=== PATIENT | male | born 1960 | race Caucasian/White ===

== ENCOUNTER 2017-10-23 16:31 | Inpatient (IN) | payer MEDICARE, OTHER ==
[~2017-10-23] VITALS: Ht 182.9 cm; Wt 124.5 kg
[2017-10-23] MEDS ORDERED: cloNIDine HCL 0.1 MG TABLET PO ONE (17:15)
[2017-10-23] MEDS ORDERED: amLODIPine BESYLATE 5 MG TABLET PO ONE (17:15)
[2017-10-23] MEDS ORDERED: IV NORMAL SALINE 1000ML BAG 1,000 ML IV ONE (17:15)
[2017-10-23 17:28] LABS: BASO # 0.1 x10^3/uL (0.0-0.2); BASO % 1 % (0-3); EOS # 0.1 x10^3/uL (0.0-0.7); EOS % 2 % (0-3); HEMATOCRIT 43.8 % (39.0-53.0); HEMOGLOBIN 14.3 g/dL (13.0-17.5); LYMPH # 2.1 x10^3/uL (1.0-4.8); LYMPH % 36 % (24-48); MEAN CORPUSCULAR HEMOGLOBIN 27 pg (25-35); MEAN CORPUSCULAR HGB CONC 33 g/dL (31-37); MEAN CORPUSCULAR VOLUME 81 fL (79-100); MONO # 0.6 x10^3/uL (0.0-1.1); MONO % 11 % (0-9); NEUT # 2.9 x10^3uL (1.8-7.7); NEUT % 50 % (31-73); PLATELET COUNT 215 x10^3/uL (140-400); RED CELL DISTRIBUTION WIDTH 15.3 % (11.5-14.5); WHITE BLOOD COUNT 5.8 x10^3/uL (4.0-11.0)
[2017-10-23 17:35] LABS: BILIRUBIN,URINE NEGATIVE (NEG); CLARITY,URINE CLEAR; COLOR,URINE YELLOW; NITRITE,URINE NEGATIVE (NEG); PH,URINE 5.5; PROTEIN,URINE 30 mg/dL (NEG-TRACE); UROBILINOGEN,URINE 0.2 mg/dL (0.2 mg/dL)
[2017-10-23 17:38] LABS: PROTHROMBIN TIME PATIENT 12.5 SEC (11.7-14.0)
[2017-10-23 17:42] LABS: CALCIUM 8.7 mg/dL (8.5-10.1); CREATININE 0.9 mg/dL (0.7-1.3); GFR 87.6; POTASSIUM 3.4 mmol/L (3.5-5.1)
[2017-10-23 17:46] LABS: ALBUMIN 3.4 g/dL (3.4-5.0); TOTAL BILIRUBIN 0.2 mg/dL (0.2-1.0); TOTAL PROTEIN 6.7 g/dL (6.4-8.2)
--- NOTE | 2017-10-23 17:48 | PHYS DOC ---
Past Medical History Past Medical History: Diabetes-Type II, Hypertension Additional Past Medical Histor: CONCUSSION Additional Past Surgical Histo: BACK SX AND HEAD SX Alcohol Use: Occasionally Drug Use: None Adult General Chief Complaint Chief Complaint: OTHER COMPLAINTS HPI HPI Patient is a 57 year old male presenting with chief complaint of feeling a sensation of heat coming off his neck in the back of his head and radiates down his the back of his body says he's had this for several weeks if not longer. He has no chest pain no shortness of breath. He does take blood pressure medication or he has not been on it. Also is noting some swelling of the right lower extremity says he might have sprained it but he never got it checked out. There has been going on for about a week. He says he's been evaluated for this hot sensation in the past without effect. And apparently his doctor ordered an ultrasound of his right lower extremity but that has not been done yet. He does take blood pressure medication but has not taken it this afternoon. Review of Systems Review of Systems Eyes: Denies change in visual acuity, redness, or eye pain [] HENT: Denies nasal congestion or sore throat [] Respiratory: Denies cough or shortness of breath [] Musculoskeletal: Integument: Denies rash or skin lesions [] Endocrine: Denies polyuria or polydipsia [] All other systems were reviewed and found to be within normal limits, except as documented in this note. Current Medications Current Medications Current Medications Medications (Trade) Dose Ordered Sig/Marcus Start Time Stop Time Status Last Admin Dose Admin Acetaminophen (Tylenol) 650 mg PRN Q4HRS PRN 10/23/17 19:30 10/24/17 19:29 Acetaminophen/ Hydrocodone Bitart (Lortab 5/325) 2 tab 1X ONCE 10/23/17 18:45 10/23/17 18:47 DC 10/23/17 19:08 2 TAB Amlodipine Besylate (Norvasc) 10 mg 1X ONCE 10/23/17 17:15 10/23/17 17:16 DC 10/23/17 17:21 10 MG Clonidine HCl (Catapres) 0.3 mg 1X ONCE 10/23/17 17:15 10/23/17 17:16 DC 10/23/17 17:21 0.3 MG Heparin Sodium (Porcine) (Heparin Sodium) 1,850 unit PRN Q6HRS PRN 10/23/17 19:15 Heparin Sodium/ Dextrose 500 ml @ 0 mls/hr CONT PRN 10/23/17 19:15 Info (CONTRAST GIVEN -- Rx MONITORING) 1 each PRN DAILY PRN 10/23/17 18:15 10/25/17 18:14 Iohexol (Omnipaque 300 Mg/ml) 75 ml 1X ONCE 10/23/17 18:15 10/23/17 18:16 DC Morphine Sulfate (Morphine Sulfate) 4 mg PRN Q2HR PRN 10/23/17 19:30 10/24/17 19:29 Ondansetron HCl (Zofran) 4 mg PRN Q8HRS PRN 10/23/17 19:30 10/24/17 19:29 Sodium Chloride 1,000 ml @ 1,000 mls/hr 1X ONCE 10/23/17 17:15 10/23/17 18:14 DC 10/23/17 17:21 1,000 MLS/HR Warfarin Sodium (Coumadin Per Pharmacy) 1 each PRN DAILY PRN 10/23/17 19:15 UNV Allergies Allergies Allergies Coded Allergies Type Severity Reaction Last Updated Verified No Known Drug Allergies 10/23/17 No Physical Exam Physical Exam Constitutional: Well developed, well nourished, no acute distress, non-toxic appearance. [] HENT: Normocephalic, atraumatic, bilateral external ears normal, oropharynx moist, no oral exudates, nose normal. [] Eyes: PERRLA, EOMI, conjunctiva normal, no discharge. [] Neck: Normal range of motion, no tenderness, supple, no stridor. [] Cardiovascular:Heart rate regular rhythm, no murmur [] Lungs & Thorax: Bilateral breath sounds clear to auscultation [] Abdomen: Bowel sounds normal, soft, no tenderness, no masses, no pulsatile masses. [] Skin: Warm, dry, no erythema, no rash. [] Back: No tenderness, no CVA tenderness. [] Extremities: No tenderness, no cyanosis, no clubbing, ROM intact, no edema. [] Neurologic: Alert and oriented X 3, normal motor function, normal sensory function, no focal deficits noted. [] Psychologic: Affect normal, judgement normal, mood normal. [] Current Patient Data Vital Signs Vital Signs Date Time Temp Pulse Resp B/P (MAP) Pulse Ox O2 Delivery O2 Flow Rate FiO2 10/23/17 17:21 80 221/139 10/23/17 16:41 98.3 26 97 Room Air 98.3 Lab Values Laboratory Tests Test 10/23/17 16:52 10/23/17 17:18 10/23/17 17:29 Glucose (Fingerstick) 354 mg/dL (70-99) H White Blood Count 5.8 x10^3/uL (4.0-11.0) Red Blood Count 5.40 x10^6/uL (4.30-5.70) Hemoglobin 14.3 g/dL (13.0-17.5) Hematocrit 43.8 % (39.0-53.0) Mean Corpuscular Volume 81 fL (79-100) Mean Corpuscular Hemoglobin 27 pg (25-35) Mean Corpuscular Hemoglobin Concent 33 g/dL (31-37) Red Cell Distribution Width 15.3 % (11.5-14.5) H Platelet Count 215 x10^3/uL (140-400) Neutrophils (%) (Auto) 50 % (31-73) Lymphocytes (%) (Auto) 36 % (24-48) Monocytes (%) (Auto) 11 % (0-9) H Eosinophils (%) (Auto) 2 % (0-3) Basophils (%) (Auto) 1 % (0-3) Neutrophils # (Auto) 2.9 x10^3uL (1.8-7.7) Lymphocytes # (Auto) 2.1 x10^3/uL (1.0-4.8) Monocytes # (Auto) 0.6 x10^3/uL (0.0-1.1) Eosinophils # (Auto) 0.1 x10^3/uL (0.0-0.7) Basophils # (Auto) 0.1 x10^3/uL (0.0-0.2) Prothrombin Time 12.5 SEC (11.7-14.0) Prothrombin Time INR 1.0 (0.8-1.1) Sodium Level 133 mmol/L (136-145) L Potassium Level 3.4 mmol/L (3.5-5.1) L Chloride Level 100 mmol/L (98-107) Carbon Dioxide Level 27 mmol/L (21-32) Anion Gap 6 (6-14) Blood Urea Nitrogen 12 mg/dL (8-26) Creatinine 0.9 mg/dL (0.7-1.3) Estimated GFR (Cockcroft-Gault) 87.6 BUN/Creatinine Ratio 13 (6-20) Glucose Level 361 mg/dL (70-99) H Calcium Level 8.7 mg/dL (8.5-10.1) Total Bilirubin 0.2 mg/dL (0.2-1.0) Aspartate Amino Transferase (AST) 18 U/L (15-37) Alanine Aminotransferase (ALT) 44 U/L (16-63) Alkaline Phosphatase 96 U/L (46-116) Troponin I Quantitative 0.024 ng/mL (0.000-0.055) Total Protein 6.7 g/dL (6.4-8.2) Albumin 3.4 g/dL (3.4-5.0) Albumin/Globulin Ratio 1.0 (1.0-1.7) Urine Collection Type Void Urine Color Yellow Urine Clarity Clear Urine pH 5.5 Urine Specific [place] >=1.030 Urine Protein 30 mg/dL (NEG-TRACE) Urine Glucose (UA) >=1000 mg/dL (NEG) Urine Ketones (Stick) Negative mg/dL (NEG) Urine Blood Negative (NEG) Urine Nitrite Negative (NEG) Urine Bilirubin Negative (NEG) Urine Urobilinogen Dipstick 0.2 mg/dL (0.2 mg/dL) Urine Leukocyte Esterase Negative (NEG) Urine RBC Occ /HPF (0-2) Urine WBC Rare /HPF (0-4) Urine Squamous Epithelial Cells Few /LPF Urine Bacteria 0 /HPF (0-FEW) Urine Mucus Slight /LPF Laboratory Tests 10/23/17 17:18 Laboratory Tests 10/23/17 17:18 EKG EKG [] Interpretation Time: EKG shows a normal sinus rhythm with a rate of 84 there is LVH pattern no obvious STEMI was seen interpreted by me at time of encounter. Radiology/Procedures Radiology/Procedures CTA Chest with contrast: Clinical History: + DVT, CP. r/o PE
IV OMNI 300 75 MLS . Axial helical images of the chest were obtained after the administration of 75 cc of IV Omni 300 and timed appropriately for a pulmonary arterial study. Conventional axial reconstruction was performed in addition to coronal, sagittal and bilateral oblique MIP (maximum intensity projection). This study was ordered to detect possible pulmonary embolism. There is clot within the distal right main pulmonary artery is interdigitating into a few segmental and subsegmental pulmonary arteries. There is clot within several segmental and subsegmental branches of the left main pulmonary artery. There is no saddle embolism. The lungs and pleural margins are clear. There is no mediastinal or hilar lymphadenopathy. The thoracic aorta appears normal. The left lobe of the thyroid is enlarged. Impression: 1. Bilateral pulmonary emboli with mild to moderate clot burden. No pulmonary infarct or saddle embolism. 2. Enlargement of the left lobe of the thyroid. Recommend a follow-up ultrasound of the thyroid as an outpatient. CT Head: no acute CXR: cardiomegaly DVT Study Right LE: Findings: There is occlusive DVT throughout the right SFV and popliteal and partial clot within the right PTV. There is soft tissue edema in the right calf. There is normal duplex flow, color flow and compressibility of all remaining visualized vein segments. No evidence of deep venous thrombus is present on the left. The peroneal veins are not seen bilaterally. Impression: Extensive DVT on the right. Course & Med Decision Making Course & Med Decision Making Pertinent Labs and Imaging studies reviewed. 57-year-old male with a chief complaint of a sensation of heat coming off of the back of his neck that is been there for several weeks apparently says when he has the fan on it the air blowing off his neck is very hot and he is quite worried about this. Of note the blood pressure is 219/125 there is no chest pain. Due to the sensation and possible mild headache we have opted for head CT to rule out intercranial hemorrhage. We will give him clonidine and amlodipine and check basic lab work due to the elevated high blood pressure. 18:30: I assumed care of this patient from Dr. Islas at shift turnover. At that time, DVT study was pending. DVT study ultimately returned positive for extensive clot burden in the right lower extremity. Following this, CT angiography of the chest was completed which also revealed multiple bilateral pulmonary emboli. Patient was started on heparin. I spoke to Dr. Lopez who is on -call for Dr. Ward and the patient is being admitted to [facility]. Prior to admission, all results are reviewed and discussed with both the patient and his . All of their questions are answered. DO Charlene Taylor Disclaimer Dragon Disclaimer This electronic medical record was generated, in whole or in part, using a voice recognition dictation system. Departure Departure Referrals: EMILIANO WARD MD (PCP) LACHELLE ISLAS MD Oct 23, 2017 17:48 ANTONIA LOCKWOOD DO Oct 23, 2017 19:07
[2017-10-23 18:02] LABS: BACTERIA,URINE 0 /HPF (0-FEW); RBC,URINE OCC /HPF (0-2); SQUAMOUS EPITHELIAL CELL,UR FEW /LPF; WBC,URINE RARE /HPF (0-4)
[2017-10-23] MEDS ORDERED: CONTRAST GIVEN. MC PRN (18:15)
[2017-10-23] MEDS ORDERED: IOHEXOL 300 MG/ML 100ML VIAL. IV ONE (18:15)
--- NOTE | 2017-10-23 18:20 | RAD ---
PORTABLE CHEST 1V INDICATION: fever COMPARISON: None. FINDINGS: Normal lung volume. No focal consolidations. Normal pulmonary vasculature. No pleural effusion or pneumothorax. Borderline cardiomegaly. The great vessels of the thorax are normal. No acute osseous abnormality. IMPRESSION: 1. No focal consolidations. 2. Borderline cardiomegaly. Electronically signed by: Everett Portillo MD (10/23/2017 6:17 PM) [facility]
--- NOTE | 2017-10-23 18:21 | EKG ---
[facility] [address] [place] [address] Test Date: 2017-10-23 Test Time: 16:59:54 Pat Name: SUGEY HAZEL Department: Room: Gender: M Certified Caregiver: : 1960 Requested By: LACHELLE TOSCANO Order Number: [id number] Reading MD: Juan R Tovar MD Measurements Intervals [place] Rate: 84 P: 28 AK: 150 QRS: 33 QRSD: 92 T: -120 QT: 356 QTc: 423 Interpretive Statements SINUS RHYTHM LEFT ATRIAL ABNORMALITY LVH WITH REPOLARIZATION ABNORMALITY Electronically Signed On 10-24-2017 10:53:18 CDT by Juan R Tovar MD
--- NOTE | 2017-10-23 18:44 | RAD ---
CT Head W/O Contrast: History: HEADACHE AND SBP 220
PREVIOUS Comparison: June 09, 2012 Axial images were obtained without contrast. There has been a prior right frontal sinus surgery which may have been due to trauma and there is right frontal lobe encephalomalacia. This was seen previously. There is mild diffuse atrophy. There is no mass effect, extraaxial fluid collections or hydrocephalus. There is no gross bleed. Mild, patchy periventricular and subcortical white matter hypoattenuation is seen. There is no focal loss of hanley-white matter distinction to suggest acute ischemia, i.e. stroke. Impression: 1. Mild atrophy and chronic white matter changes is advanced for the patient's age. 2. Right frontal encephalomalacia and right frontal sinus surgery. 3. No acute findings. PQRS Compliance Statement: One or more of the following individualized dose reduction techniques were utilized for this examination: 1. Automated exposure control 2. Adjustment of the mA and/or kV according to patient size 3. Use of iterative reconstruction technique Electronically signed by: Josesito Ren III, MD (10/23/2017 6:41 PM) [id number]
[2017-10-23] MEDS ORDERED: HYDROcodone/APAP 5/325MG 1 TAB TABLET PO ONE (18:45)
--- NOTE | 2017-10-23 18:47 | RAD ---
Bilateral Lower Extremity Venous Doppler Ultrasound History: Right lower extremity swelling Comparison: None Procedure: Color flow, duplex, spectral analysis and 2D images are obtained with and without compression in the area of the common femoral vein, superficial femoral vein - femoral vein junction, main femoral vein (superficial femoral vein) and popliteal vein. Veins of the proximal calf are also imaged. Findings: There is occlusive DVT throughout the right SFV and popliteal and partial clot within the right PTV. There is soft tissue edema in the right calf. There is normal duplex flow, color flow and compressibility of all remaining visualized vein segments. No evidence of deep venous thrombus is present on the left. The peroneal veins are not seen bilaterally. Impression: Extensive DVT on the right. Electronically signed by: Josesito Ren III, MD (10/23/2017 6:44 PM) [id number]
--- NOTE | 2017-10-23 18:54 | RAD ---
CTA Chest with contrast: Clinical History: + DVT, CP. r/o PE
IV OMNI 300 75 MLS . Axial helical images of the chest were obtained after the administration of 75 cc of IV Omni 300 and timed appropriately for a pulmonary arterial study. Conventional axial reconstruction was performed in addition to coronal, sagittal and bilateral oblique MIP (maximum intensity projection). This study was ordered to detect possible pulmonary embolism. There is clot within the distal right main pulmonary artery is interdigitating into a few segmental and subsegmental pulmonary arteries. There is clot within several segmental and subsegmental branches of the left main pulmonary artery. There is no saddle embolism. The lungs and pleural margins are clear. There is no mediastinal or hilar lymphadenopathy. The thoracic aorta appears normal. The left lobe of the thyroid is enlarged. Impression: 1. Bilateral pulmonary emboli with mild to moderate clot burden. No pulmonary infarct or saddle embolism. 2. Enlargement of the left lobe of the thyroid. Recommend a follow-up ultrasound of the thyroid as an outpatient. PQRS Compliance Statement: One or more of the following individualized dose reduction techniques were utilized for this examination: 1. Automated exposure control 2. Adjustment of the mA and/or kV according to patient size 3. Use of iterative reconstruction technique Electronically signed by: Josesito Ren III, MD (10/23/2017 6:51 PM) [facility]
[2017-10-23] MEDS ORDERED: HEPARIN for IV BOLUS 10,000 UNIT/10 ML VIAL. IV PRN ×2 (19:15)
[2017-10-23] MEDS ORDERED: ONDANSETRON PF 4 MG/2 ML VIAL. IV PRN (19:30)
[2017-10-23] MEDS ORDERED: ACETAMINOPHEN 325 MG TABLET. PO PRN (19:30)
[2017-10-23] MEDS ORDERED: MORPHINE SULFATE 4 MG/ML VIAL. IV PRN (19:30)
[2017-10-23] MEDS: HEPARIN 25,000UTS/500ML PREMIX 500 ML IV PRN (20:15)
[2017-10-23 20:28] VITALS: BP 183/112
[2017-10-23] MEDS ORDERED: LOSARTAN POTASSIUM 50 MG TABLET. PO ONE (21:15)
[2017-10-23] MEDS ORDERED: cloNIDine HCL 0.2 MG TABLET PO ONE (21:15)
[2017-10-23] MEDS ORDERED: INSU100I13 SQ (21:50)
[2017-10-23] MEDS ORDERED: TAMS0.4C2 PO (21:50)
[2017-10-23] MEDS ORDERED: LOSA25TA4 PO (21:50)
[2017-10-23] MEDS ORDERED: RANI150C PO (21:50)
[2017-10-23] MEDS ORDERED: POTA20TA82 PO (21:50)
[2017-10-23] MEDS ORDERED: OMEP40CA5 PO (21:50)
[2017-10-23] MEDS ORDERED: DULA1.5P SQ (21:50)
[2017-10-23] MEDS ORDERED: CLON0.3T PO (21:50)
[2017-10-23] MEDS ORDERED: DILT180C29 PO (21:50)
[2017-10-23] MEDS ORDERED: CYCL10TA2 PO (21:50)
[2017-10-23 23:48] VITALS: BP 148/96
[2017-10-24 02:12] VITALS: BP 177/109
[2017-10-24] MEDS: ACETAMINOPHEN 325 MG TABLET. PO PRN ×2 (02:20→12:12)
[2017-10-24] MEDS: cloNIDine HCL 0.1 MG TABLET PO PRN ×3 (02:21→12:23)
[2017-10-24 03:59] VITALS: BP 165/101
[2017-10-24 05:04] LABS: BASO % 1 % (0-3); EOS # 0.2 x10^3/uL (0.0-0.7); EOS % 3 % (0-3); HEMATOCRIT 44.1 % (39.0-53.0); HEMOGLOBIN 14.7 g/dL (13.0-17.5); LYMPH # 2.8 x10^3/uL (1.0-4.8); LYMPH % 45 % (24-48); MEAN CORPUSCULAR HEMOGLOBIN 27 pg (25-35); MEAN CORPUSCULAR HGB CONC 33 g/dL (31-37); MEAN CORPUSCULAR VOLUME 82 fL (79-100); MONO # 0.5 x10^3/uL (0.0-1.1); MONO % 9 % (0-9); NEUT # 2.7 x10^3uL (1.8-7.7); NEUT % 43 % (31-73); PLATELET COUNT 218 x10^3/uL (140-400); RED CELL DISTRIBUTION WIDTH 15.5 % (11.5-14.5); WHITE BLOOD COUNT 6.3 x10^3/uL (4.0-11.0)
[2017-10-24 05:50] LABS: ALBUMIN 3.4 g/dL (3.4-5.0); ALBUMIN/GLOBULIN RATIO 0.9 (1.0-1.7); CALCIUM 8.7 mg/dL (8.5-10.1); CREATININE 0.8 mg/dL (0.7-1.3); GFR 100.4; MAGNESIUM 1.8 mg/dL (1.8-2.4); POTASSIUM 3.3 mmol/L (3.5-5.1); TOTAL BILIRUBIN 0.4 mg/dL (0.2-1.0); TOTAL PROTEIN 7.4 g/dL (6.4-8.2)
[2017-10-24 07:12] VITALS: BP 178/110
[2017-10-24] MEDS: HEPARIN 25,000UTS/500ML PREMIX 500 ML IV PRN ×2 (08:44→22:00)
[2017-10-24] MEDS ORDERED: LOSA1TAB25 PO (10:06)
[2017-10-24] MEDS ORDERED: FURO-68 PO (10:06)
[2017-10-24] MEDS ORDERED: IBUP-1007 PO (10:06)
[2017-10-24] MEDS ORDERED: CHOL500016 PO (10:06)
[2017-10-24] MEDS ORDERED: ASPI-630 PO (10:06)
[2017-10-24] MEDS ORDERED: SIMV40TA3 PO (10:06)
[2017-10-24] MEDS ORDERED: ZOLP10TA4 PO (10:06)
[2017-10-24 10:13] VITALS: BP 204/103
[2017-10-24] MEDS ORDERED: DEXTROSE 50% 25 GM / 50ML DISP.SYRIN. IV PRN (10:15)
--- NOTE | 2017-10-24 10:18 | PDOC ---
Provider Note Provider Note Pt seen.H&P dictated. #[id number] EMILIANO WARD MD Oct 24, 2017 10:18
[2017-10-24] MEDS: TAMSULOSIN 0.4 MG CAP.ER.24H. PO SCH (10:21)
[2017-10-24] MEDS: CHOLECALCIFEROL (VITAMIN D3) 5,000 UNIT CAPSULE PO SCH (10:21)
[2017-10-24] MEDS: FUROSEMIDE 40 MG TABLET. PO SCH (10:21)
[2017-10-24] MEDS: PANTOPRAZOLE 40 MG TABLET.DR. PO SCH (10:21)
[2017-10-24] MEDS: hydroCHLOROthiazide 12.5 MG CAPSULE PO SCH (10:22)
[2017-10-24] MEDS: cloNIDine HCL 0.3 MG TABLET PO SCH ×3 (10:22→20:36)
[2017-10-24] MEDS: ASPIRIN CHEWABLE 81 MG TABLET. PO SCH (10:23)
[2017-10-24] MEDS: LOSARTAN POTASSIUM 50 MG TABLET. PO SCH (10:24)
[2017-10-24] MEDS ORDERED: IBUPROFEN 600 MG TABLET. PO SCH (11:00)
[2017-10-24] MEDS ORDERED: CYCLOBENZAPRINE 10 MG TABLET. PO SCH (11:00)
[2017-10-24] MEDS ORDERED: POTASSIUM CHLORIDE 20 MEQ TABLET.ER. PO ONE (11:00)
[2017-10-24] MEDS: ANTI-COAG MONITOR BY PHARMACY. MC PRN (11:02)
--- NOTE | 2017-10-24 11:05 | HP ---
ADMIT DATE: 10/23/2017 PATIENT LOCATION: 262. REASON FOR ADMISSION TO THE HOSPITAL: DVT, right leg and pulmonary embolism. HISTORY OF PRESENT ILLNESS: The patient is a 57-year-old male patient with history of diabetes, hypertension and traumatic brain injury. He was having swelling in the right leg. I had seen in the office a couple of days ago, recommended venous Doppler, but refused and he came to the hospital for pain and swelling in the right leg as well as short of breath. He was found to have a DVT and pulmonary embolism, was admitted to the hospital and started on heparin drip. PAST MEDICAL HISTORY: As mentioned above, history of diabetes, hypertension and traumatic brain injury. PAST SURGICAL HISTORY: Back surgery and surgery on the skull for head concussion when he was 20 years old. ALLERGIES: No known drug allergies. MEDICATIONS: Trulicity inj weekly; aspirin 81 mg daily; vitamin D 5000 daily; clonidine 0.3 three times a day; cyclobenzaprine 10 mg daily; diltiazem 180 mg daily; Lasix 40 mg daily; ibuprofen 600 mg twice a day; insulin 45 units at bedtime, Lantus; losartan with hydrochlorothiazide 100/12.5 daily; omeprazole 40 mg daily; potassium 20 mEq 3 times daily; Zantac 150 mg daily; simvastatin 40 mg daily; Flomax 0.4 daily; Ambien 10 mg daily and sliding scale insulin. PERSONAL HISTORY: Smokes 1 pack, cut down to half a pack. Denies alcohol. Denies any street drugs. FAMILY HISTORY: Positive for diabetes and hypertension. REVIEW OF SYMPTOMS: Cardiac [place], has some pain going to the back, short of breath. Gastrointestinal, no nausea or vomiting. Some swelling in the right leg. Rest of the 14 systems was reviewed and negative. PHYSICAL EXAMINATION: VITAL SIGNS: At the time of admission shows a temperature 98, pulse 89, respirations 20, blood pressure 219/125 and 97 on room air. HEENT: Head has an old scar from head surgery. Pupils equal. Oral cavity, no congestion. NECK: Supple. Thyroid not enlarged. JVD not elevated. CHEST: Symmetrical. CARDIOVASCULAR: S1, S2. LUNGS: Clear. ABDOMEN: Soft, obese. No mass palpable. EXTERNAL GENITALIA: Deferred. EXTREMITIES: Has swelling in the right leg when compared to the left leg. BACK: The patient has scar of back surgery when he was 20 years old and had injury, healing good. LABORATORY DATA: Shows a white count of 6, hemoglobin 14 and platelets 215,000. INR 1.0. Electrolytes show sodium 133, potassium 3.4, chloride 100, bicarbonate 26, BUN 12, creatinine 0.9 and glucose 361. LFTs were normal. Troponin was negative. Urine is 1000, otherwise negative. Ultrasound shows a DVT on the right. CT angiogram shows pulmonary embolism. Chest x-ray negative. CT head shows encephalomalacia. FINAL IMPRESSION: 1. Deep vein thrombosis, right leg. 2. Pulmonary embolism wood lungs. 3. Accelerated hypertension. 4. Diabetes, insulin dependent. 5. Hypertension. 6. Traumatic brain injury when he was 20. 7. Hyperlipidemia. 8. Uncontrolled rosalino nora. 9. H/o back surgery and head surgery. 10. Morbid obesity PLAN: Plan at this time, admit to hospital. Start on heparin drip. Pulmonary is consulted .Control his blood pressure and see how he improves in the next couple of days. Smoking counseling was done.Control his sugars with insulin. EMILIANO WARD MD DR: ELISSA/familia JOB#: [id number] / [id number] LEVAR
--- NOTE | 2017-10-24 11:31 | PDOC2 ---
CARDIAC CONSULT DATE OF CONSULT Date of Consult DATE: 10/24/17 TIME: 11:30 REASON FOR CONSULT Reason for Consult: uncontrolled hypertension REFERRING PHYSICIAN Referring Physician: John SOURCE Source: Chart review, Patient HISTORY OF PRESENT ILLNESS HISTORY OF PRESENT ILLNESS 57 year old male admitted through the ER with dyspnea and RLE edema. Studies demonstrated a DVT in the RLE with bilateral pulmonary emboli on CTA and started on heparin gtt. BP with systolic > 200; unclear if he takes his meds on a regular basis. Oral meds resumed earlier today. K 3.3 POA. C/O DIAZ line stabbing chest pain without associated symptoms. Reason for Visit: hypertension PAST MEDICAL HISTORY Cardiovascular: HTN Pulmonary: Other (BEBE - untreated ) CENTRAL NERVOUS SYSTEM: Other (TBI) Endocrine: Diabetes PAST SURGICAL HISTORY Past Surgical History: Other (brain and back surgery) FAMILY HISTORY Family History: Diabetes, Hypertension SOCIAL HISTORY Smoke: <1 pack per day CURRENT MEDICATIONS CURRENT MEDICATIONS Current Medications Medications (Trade) Dose Ordered Sig/Marcus Route PRN Reason Start Time Stop Time Status Last Admin Dose Admin Sodium Chloride 1,000 ml @ 1,000 mls/hr 1X ONCE IV 10/23/17 17:15 10/23/17 18:14 DC 10/23/17 17:21 Clonidine HCl (Catapres) 0.3 mg 1X ONCE PO 10/23/17 17:15 10/23/17 17:16 DC 10/23/17 17:21 Amlodipine Besylate (Norvasc) 10 mg 1X ONCE PO 10/23/17 17:15 10/23/17 17:16 DC 10/23/17 17:21 Acetaminophen/ Hydrocodone Bitart (Lortab 5/325) 2 tab 1X ONCE PO 10/23/17 18:45 10/23/17 18:47 DC 10/23/17 19:08 Heparin Sodium/ Dextrose 500 ml @ 0 mls/hr CONT PRN IV SEE I/O RECORD 10/23/17 19:15 10/24/17 08:44 Morphine Sulfate (Morphine Sulfate) 4 mg PRN Q2HR PRN IV PAIN 10/23/17 19:30 10/24/17 19:29 10/24/17 02:21 Acetaminophen (Tylenol) 650 mg PRN Q4HRS PRN PO MILD PAIN 10/23/17 21:15 10/24/17 02:20 Clonidine HCl (Catapres) 0.2 mg 1X ONCE PO 10/23/17 21:15 10/23/17 21:16 DC 10/23/17 21:28 Clonidine HCl (Catapres) 0.1 mg PRN Q4HRS PRN PO HYPERTENSION, SEE COMMENTS 10/23/17 21:15 10/24/17 08:23 Losartan Potassium (Cozaar) 50 mg 1X ONCE PO 10/23/17 21:15 10/23/17 21:16 DC 10/23/17 21:28 Info (Anti-Coagulation Monitoring By Pharmacy) 1 each PRN DAILY PRN MC SEE COMMENTS 10/24/17 07:30 10/24/17 11:02 Aspirin (Children'S Aspirin) 81 mg DAILY PO 10/24/17 11:00 10/24/17 10:23 Clonidine HCl (Catapres) 0.3 mg TID PO 10/24/17 11:00 10/24/17 10:22 Cyclobenzaprine HCl (Flexeril) 10 mg DAILY PO 10/24/17 11:00 10/24/17 10:22 Furosemide (Lasix) 40 mg DAILY PO 10/24/17 11:00 10/24/17 10:21 Tamsulosin HCl (Flomax) 0.4 mg DAILY PO 10/24/17 11:00 10/24/17 10:21 Vitamin D (Vitamin D3) 5,000 unit DAILY PO 10/24/17 11:00 10/24/17 10:21 Diltiazem HCl (Cardizem 24hr Cd) 180 mg DAILY PO 10/24/17 11:00 10/24/17 10:21 Ibuprofen (Motrin) 600 mg BIDWMEALS PO 10/24/17 11:00 10/24/17 10:23 Pantoprazole Sodium (Protonix) 40 mg DAILYAC PO 10/24/17 11:00 10/24/17 10:21 Losartan Potassium (Cozaar) 100 mg DAILY PO 10/24/17 11:00 10/24/17 10:24 Hydrochlorothiazide (Microzide) 12.5 mg DAILY PO 10/24/17 11:00 10/24/17 10:22 ALLERGIES ALLERGIES: Coded Allergies: No Known Drug Allergies (Unverified , 10/23/17) ROS General: No: Chills, Night Sweats, Fatigue, Malaise, Appetite, Other PSYCHOLOGICAL ROS: No: Anxiety, Behavioral Disorder, Concentration difficultie , Decreased libido, Depression, Disorientation, Hallucinations, Hostility, Irritablity, Memory difficulties, Mood Swings, Obsessive thoughts, Physical abuse, Sexual abuse, Sleep disturbances, Suicidal ideation, Other Eyes: No Blurry vision, No Decreased vision, No Double vision, No Dry eyes, No Excessive tearing, No Eye Pain, No Itchy Eyes, No Loss of vision, No Photophobia , No Scotomata, No Uses contacts, No Uses glasses, No Other HEENT: No: Heacaches, Visual Changes, Hearing change, Nasal congestion, Nasal discharge, Oral lesions, Sinus pain, Sore Throat, Epistaxis, Sneezing, Snoring, Tinnitus, Vertigo, Vocal changes, Other ALLERGY AND IMMUNOLOGY: No: Hives, Insect Bite Sensitivity, Itchy/Watery Eyes, Nasal Congestion, Post Nasal Drip, Seasonal Allergies, Other Hematological and Lymphatic: YES: Blood Clots; No: Bleeding Problems, Blood Transfusions, Brusing, Night Sweats, Pallor, Swollen Lymph Nodes, Other ENDOCRINE: No: Breast Changes, Galactorrhea, Hair Pattern Changes, Hot Flashes , Malaise/lethargy, Mood Swings, Palpitations, Polydipsia/polyuria, Skin Changes , Temperature Intolerance, Unexpected Weight Changes, Other Breast: No New/Changing Breast Lumps, No Nipple changes, No Nipple discharge, No Other Respiratory: No: Cough, Hemoptysis, Orthopnea, Pleuritic Pain, Shortness of breath, SOB with excertion, Sputum Changes, Stridor, Tachypnea, Wheezing, Other Cardiovascular: No Chest Pain, No Palpitations, No Orthopnea, No Paroxysmal Noc. Dyspnea, No Edema, No Lt Headedness, No Other Gastrointestinal: No Nausea, No Vomiting, No Abdominal Pain, No Diarrhea, No Constipation, No Melena, No Hematochezia, No Other Genitourinary: No Dysuria, No Frequency, No Incontinence, No Hematuria, No Retention, No Discharge, No Urgency, No Pain, No Flank Pain, No Other Musculoskeletal: No Gait Disturbance, No Joint Pain, No Joint Stiffness, No Joint Swelling, No Muscle Pain, No Muscular Weakness, No Pain In:, No Swelling In:, No Other Neurological: No Behavorial Changes, No Bowel/Bladder ControlChng, No Confusion , No Dizziness, No Gait Disturbance, No Headaches, No Impaired Coord/balance, No Memory Loss, No Numbness/Tingling, No Seizures, No Speech Problems, No Tremors, No Visual Changes, No Weakness, No Other Skin: No Dry Skin, No Eczema, No Hair Changes, No Lumps, No Mole Changes, No Mottling, No Nail Changes, No Pruritus, No Rash, No Skin Lesion Changes, No Other, No Acne PHYSICAL EXAM General: Alert, Cooperative, No acute distress HEENT: Atraumatic, Mucous membr. moist/pink Lungs: Clear to auscultation Heart: Normal S1, Normal S2, Other (R>L ankle and lower extremity edema) Abdomen: Soft Skin: No rashes Neuro: Normal speech Psych/Mental Status: Mood NL MUSCULOSKELETAL: No deformity VITALS VITALS Vital Signs Date Time Temp Pulse Resp B/P (MAP) Pulse Ox O2 Delivery O2 Flow Rate FiO2 10/24/17 10:24 73 204/103 10/24/17 10:13 98.4 20 95 Room Air 98.4 LABS Lab: Laboratory Tests Test 10/23/17 16:52 10/23/17 17:18 10/23/17 17:29 10/23/17 20:42 Glucose (Fingerstick) 354 mg/dL (70-99) 277 mg/dL (70-99) White Blood Count 5.8 x10^3/uL (4.0-11.0) Red Blood Count 5.40 x10^6/uL (4.30-5.70) Hemoglobin 14.3 g/dL (13.0-17.5) Hematocrit 43.8 % (39.0-53.0) Mean Corpuscular Volume 81 fL (79-100) Mean Corpuscular Hemoglobin 27 pg (25-35) Mean Corpuscular Hemoglobin Concent 33 g/dL (31-37) Red Cell Distribution Width 15.3 % (11.5-14.5) Platelet Count 215 x10^3/uL (140-400) Neutrophils (%) (Auto) 50 % (31-73) Lymphocytes (%) (Auto) 36 % (24-48) Monocytes (%) (Auto) 11 % (0-9) Eosinophils (%) (Auto) 2 % (0-3) Basophils (%) (Auto) 1 % (0-3) Neutrophils # (Auto) 2.9 x10^3uL (1.8-7.7) Lymphocytes # (Auto) 2.1 x10^3/uL (1.0-4.8) Monocytes # (Auto) 0.6 x10^3/uL (0.0-1.1) Eosinophils # (Auto) 0.1 x10^3/uL (0.0-0.7) Basophils # (Auto) 0.1 x10^3/uL (0.0-0.2) Prothrombin Time 12.5 SEC (11.7-14.0) Prothromb Time International Ratio 1.0 (0.8-1.1) Sodium Level 133 mmol/L (136-145) Potassium Level 3.4 mmol/L (3.5-5.1) Chloride Level 100 mmol/L (98-107) Carbon Dioxide Level 27 mmol/L (21-32) Anion Gap 6 (6-14) Blood Urea Nitrogen 12 mg/dL (8-26) Creatinine 0.9 mg/dL (0.7-1.3) Estimated GFR (Cockcroft-Gault) 87.6 BUN/Creatinine Ratio 13 (6-20) Glucose Level 361 mg/dL (70-99) Calcium Level 8.7 mg/dL (8.5-10.1) Total Bilirubin 0.2 mg/dL (0.2-1.0) Aspartate Amino Transf (AST/SGOT) 18 U/L (15-37) Alanine Aminotransferase (ALT/SGPT) 44 U/L (16-63) Alkaline Phosphatase 96 U/L (46-116) Troponin I Quantitative 0.024 ng/mL (0.000-0.055) Total Protein 6.7 g/dL (6.4-8.2) Albumin 3.4 g/dL (3.4-5.0) Albumin/Globulin Ratio 1.0 (1.0-1.7) Urine Collection Type Void Urine Color Yellow Urine Clarity Clear Urine pH 5.5 Urine Specific [place] >=1.030 Urine Protein 30 mg/dL (NEG-TRACE) Urine Glucose (UA) >=1000 mg/dL (NEG) Urine Ketones (Stick) Negative mg/dL (NEG) Urine Blood Negative (NEG) Urine Nitrite Negative (NEG) Urine Bilirubin Negative (NEG) Urine Urobilinogen Dipstick 0.2 mg/dL (0.2 mg/dL) Urine Leukocyte Esterase Negative (NEG) Urine RBC Occ /HPF (0-2) Urine WBC Rare /HPF (0-4) Urine Squamous Epithelial Cells Few /LPF Urine Bacteria 0 /HPF (0-FEW) Urine Mucus Slight /LPF Test 10/24/17 04:15 10/24/17 07:41 10/24/17 10:36 White Blood Count 6.3 x10^3/uL (4.0-11.0) Red Blood Count 5.40 x10^6/uL (4.30-5.70) Hemoglobin 14.7 g/dL (13.0-17.5) Hematocrit 44.1 % (39.0-53.0) Mean Corpuscular Volume 82 fL (79-100) Mean Corpuscular Hemoglobin 27 pg (25-35) Mean Corpuscular Hemoglobin Concent 33 g/dL (31-37) Red Cell Distribution Width 15.5 % (11.5-14.5) Platelet Count 218 x10^3/uL (140-400) Neutrophils (%) (Auto) 43 % (31-73) Lymphocytes (%) (Auto) 45 % (24-48) Monocytes (%) (Auto) 9 % (0-9) Eosinophils (%) (Auto) 3 % (0-3) Basophils (%) (Auto) 1 % (0-3) Neutrophils # (Auto) 2.7 x10^3uL (1.8-7.7) Lymphocytes # (Auto) 2.8 x10^3/uL (1.0-4.8) Monocytes # (Auto) 0.5 x10^3/uL (0.0-1.1) Eosinophils # (Auto) 0.2 x10^3/uL (0.0-0.7) Basophils # (Auto) 0.0 x10^3/uL (0.0-0.2) Heparin Anti-Xa Act, Unfractionated 0.36 IU/mL (0.30-0.70) 0.36 IU/mL (0.30-0.70) Sodium Level 134 mmol/L (136-145) Potassium Level 3.3 mmol/L (3.5-5.1) Chloride Level 98 mmol/L (98-107) Carbon Dioxide Level 26 mmol/L (21-32) Anion Gap 10 (6-14) Blood Urea Nitrogen 10 mg/dL (8-26) Creatinine 0.8 mg/dL (0.7-1.3) Estimated GFR (Cockcroft-Gault) 100.4 BUN/Creatinine Ratio 13 (6-20) Glucose Level 335 mg/dL (70-99) Calcium Level 8.7 mg/dL (8.5-10.1) Magnesium Level 1.8 mg/dL (1.8-2.4) Total Bilirubin 0.4 mg/dL (0.2-1.0) Aspartate Amino Transf (AST/SGOT) 20 U/L (15-37) Alanine Aminotransferase (ALT/SGPT) 46 U/L (16-63) Alkaline Phosphatase 97 U/L (46-116) Total Protein 7.4 g/dL (6.4-8.2) Albumin 3.4 g/dL (3.4-5.0) Albumin/Globulin Ratio 0.9 (1.0-1.7) Glucose (Fingerstick) 328 mg/dL (70-99) IMAGES IMAGES CXR without acute process EKG EKG SINUS RHYTHM LEFT ATRIAL ABNORMALITY LVH WITH REPOLARIZATION ABNORMALITY ECHOCARDIOGRAM ECHOCARDIOGRAM pending ASSESSMENT/PLAN ASSESSMENT/PLAN 1. bilateral pulmonary embolus with RLE DVT --continue heparin gtt 2. chest pain --atypical and likely related to PE --EKG without acute changes --consider outpatient MPI given risk factors of DM, II and HTN 3. DM, II --per primary service 4. HTN urgency --oral meds resumed --add prn labetolol --consider stopping diltiazem and using amlodipine or felodipine as patient does not provide a history of dysrhythmias --may also benefit from use of BiDil rather than clonidine 5. BEBE, untreated CHARLIE MEJIA ALMOND BLANCHER HAND Oct 24, 2017 11:31
[2017-10-24] MEDS: POTASSIUM CHLORIDE 20 MEQ TABLET.ER. PO SCH ×2 (12:10→17:32)
[2017-10-24] MEDS: INSULIN LISPRO 300 UNITS/3 ML INSULN.PEN. SQ SCH ×2 (12:25→17:38)
--- NOTE | 2017-10-24 13:32 | PDOC ---
PULMONARY PROGRESS NOTES Vitals Vital Signs Date Time Temp Pulse Resp B/P (MAP) Pulse Ox O2 Delivery O2 Flow Rate FiO2 10/24/17 12:23 71 178/99 10/24/17 10:13 98.4 20 95 Room Air 98.4 Labs Laboratory Tests Test 10/23/17 16:52 10/23/17 17:18 10/23/17 17:29 10/23/17 20:42 Glucose (Fingerstick) 354 mg/dL (70-99) 277 mg/dL (70-99) White Blood Count 5.8 x10^3/uL (4.0-11.0) Red Blood Count 5.40 x10^6/uL (4.30-5.70) Hemoglobin 14.3 g/dL (13.0-17.5) Hematocrit 43.8 % (39.0-53.0) Mean Corpuscular Volume 81 fL (79-100) Mean Corpuscular Hemoglobin 27 pg (25-35) Mean Corpuscular Hemoglobin Concent 33 g/dL (31-37) Red Cell Distribution Width 15.3 % (11.5-14.5) Platelet Count 215 x10^3/uL (140-400) Neutrophils (%) (Auto) 50 % (31-73) Lymphocytes (%) (Auto) 36 % (24-48) Monocytes (%) (Auto) 11 % (0-9) Eosinophils (%) (Auto) 2 % (0-3) Basophils (%) (Auto) 1 % (0-3) Neutrophils # (Auto) 2.9 x10^3uL (1.8-7.7) Lymphocytes # (Auto) 2.1 x10^3/uL (1.0-4.8) Monocytes # (Auto) 0.6 x10^3/uL (0.0-1.1) Eosinophils # (Auto) 0.1 x10^3/uL (0.0-0.7) Basophils # (Auto) 0.1 x10^3/uL (0.0-0.2) Prothrombin Time 12.5 SEC (11.7-14.0) Prothromb Time International Ratio 1.0 (0.8-1.1) Sodium Level 133 mmol/L (136-145) Potassium Level 3.4 mmol/L (3.5-5.1) Chloride Level 100 mmol/L (98-107) Carbon Dioxide Level 27 mmol/L (21-32) Anion Gap 6 (6-14) Blood Urea Nitrogen 12 mg/dL (8-26) Creatinine 0.9 mg/dL (0.7-1.3) Estimated GFR (Cockcroft-Gault) 87.6 BUN/Creatinine Ratio 13 (6-20) Glucose Level 361 mg/dL (70-99) Calcium Level 8.7 mg/dL (8.5-10.1) Total Bilirubin 0.2 mg/dL (0.2-1.0) Aspartate Amino Transf (AST/SGOT) 18 U/L (15-37) Alanine Aminotransferase (ALT/SGPT) 44 U/L (16-63) Alkaline Phosphatase 96 U/L (46-116) Troponin I Quantitative 0.024 ng/mL (0.000-0.055) Total Protein 6.7 g/dL (6.4-8.2) Albumin 3.4 g/dL (3.4-5.0) Albumin/Globulin Ratio 1.0 (1.0-1.7) Urine Collection Type Void Urine Color Yellow Urine Clarity Clear Urine pH 5.[address] [place] [address] >=1.030 Urine Protein 30 mg/dL (NEG-TRACE) Urine Glucose (UA) >=1000 mg/dL (NEG) Urine Ketones (Stick) Negative mg/dL (NEG) Urine Blood Negative (NEG) Urine Nitrite Negative (NEG) Urine Bilirubin Negative (NEG) Urine Urobilinogen Dipstick 0.2 mg/dL (0.2 mg/dL) Urine Leukocyte Esterase Negative (NEG) Urine RBC Occ /HPF (0-2) Urine WBC Rare /HPF (0-4) Urine Squamous Epithelial Cells Few /LPF Urine Bacteria 0 /HPF (0-FEW) Urine Mucus Slight /LPF Test 10/24/17 04:15 10/24/17 07:41 10/24/17 10:36 10/24/17 11:35 White Blood Count 6.3 x10^3/uL (4.0-11.0) Red Blood Count 5.40 x10^6/uL (4.30-5.70) Hemoglobin 14.7 g/dL (13.0-17.5) Hematocrit 44.1 % (39.0-53.0) Mean Corpuscular Volume 82 fL (79-100) Mean Corpuscular Hemoglobin 27 pg (25-35) Mean Corpuscular Hemoglobin Concent 33 g/dL (31-37) Red Cell Distribution Width 15.5 % (11.5-14.5) Platelet Count 218 x10^3/uL (140-400) Neutrophils (%) (Auto) 43 % (31-73) Lymphocytes (%) (Auto) 45 % (24-48) Monocytes (%) (Auto) 9 % (0-9) Eosinophils (%) (Auto) 3 % (0-3) Basophils (%) (Auto) 1 % (0-3) Neutrophils # (Auto) 2.7 x10^3uL (1.8-7.7) Lymphocytes # (Auto) 2.8 x10^3/uL (1.0-4.8) Monocytes # (Auto) 0.5 x10^3/uL (0.0-1.1) Eosinophils # (Auto) 0.2 x10^3/uL (0.0-0.7) Basophils # (Auto) 0.0 x10^3/uL (0.0-0.2) Heparin Anti-Xa Act, Unfractionated 0.36 IU/mL (0.30-0.70) 0.36 IU/mL (0.30-0.70) Sodium Level 134 mmol/L (136-145) Potassium Level 3.3 mmol/L (3.5-5.1) Chloride Level 98 mmol/L (98-107) Carbon Dioxide Level 26 mmol/L (21-32) Anion Gap 10 (6-14) Blood Urea Nitrogen 10 mg/dL (8-26) Creatinine 0.8 mg/dL (0.7-1.3) Estimated GFR (Cockcroft-Gault) 100.4 BUN/Creatinine Ratio 13 (6-20) Glucose Level 335 mg/dL (70-99) Calcium Level 8.7 mg/dL (8.5-10.1) Magnesium Level 1.8 mg/dL (1.8-2.4) Total Bilirubin 0.4 mg/dL (0.2-1.0) Aspartate Amino Transf (AST/SGOT) 20 U/L (15-37) Alanine Aminotransferase (ALT/SGPT) 46 U/L (16-63) Alkaline Phosphatase 97 U/L (46-116) Total Protein 7.4 g/dL (6.4-8.2) Albumin 3.4 g/dL (3.4-5.0) Albumin/Globulin Ratio 0.9 (1.0-1.7) Glucose (Fingerstick) 328 mg/dL (70-99) 304 mg/dL (70-99) Laboratory Tests Test 10/23/17 16:52 10/23/17 17:18 10/23/17 17:29 10/23/17 20:42 Glucose (Fingerstick) 354 mg/dL (70-99) 277 mg/dL (70-99) White Blood Count 5.8 x10^3/uL (4.0-11.0) Red Blood Count 5.40 x10^6/uL (4.30-5.70) Hemoglobin 14.3 g/dL (13.0-17.5) Hematocrit 43.8 % (39.0-53.0) Mean Corpuscular Volume 81 fL (79-100) Mean Corpuscular Hemoglobin 27 pg (25-35) Mean Corpuscular Hemoglobin Concent 33 g/dL (31-37) Red Cell Distribution Width 15.3 % (11.5-14.5) Platelet Count 215 x10^3/uL (140-400) Neutrophils (%) (Auto) 50 % (31-73) Lymphocytes (%) (Auto) 36 % (24-48) Monocytes (%) (Auto) 11 % (0-9) Eosinophils (%) (Auto) 2 % (0-3) Basophils (%) (Auto) 1 % (0-3) Neutrophils # (Auto) 2.9 x10^3uL (1.8-7.7) Lymphocytes # (Auto) 2.1 x10^3/uL (1.0-4.8) Monocytes # (Auto) 0.6 x10^3/uL (0.0-1.1) Eosinophils # (Auto) 0.1 x10^3/uL (0.0-0.7) Basophils # (Auto) 0.1 x10^3/uL (0.0-0.2) Prothrombin Time 12.5 SEC (11.7-14.0) Prothromb Time International Ratio 1.0 (0.8-1.1) Sodium Level 133 mmol/L (136-145) Potassium Level 3.4 mmol/L (3.5-5.1) Chloride Level 100 mmol/L (98-107) Carbon Dioxide Level 27 mmol/L (21-32) Anion Gap 6 (6-14) Blood Urea Nitrogen 12 mg/dL (8-26) Creatinine 0.9 mg/dL (0.7-1.3) Estimated GFR (Cockcroft-Gault) 87.6 BUN/Creatinine Ratio 13 (6-20) Glucose Level 361 mg/dL (70-99) Calcium Level 8.7 mg/dL (8.5-10.1) Total Bilirubin 0.2 mg/dL (0.2-1.0) Aspartate Amino Transf (AST/SGOT) 18 U/L (15-37) Alanine Aminotransferase (ALT/SGPT) 44 U/L (16-63) Alkaline Phosphatase 96 U/L (46-116) Troponin I Quantitative 0.024 ng/mL (0.000-0.055) Total Protein 6.7 g/dL (6.4-8.2) Albumin 3.4 g/dL (3.4-5.0) Albumin/Globulin Ratio 1.0 (1.0-1.7) Urine Collection Type Void Urine Color Yellow Urine Clarity Clear Urine pH 5.[address] >=1.030 Urine Protein 30 mg/dL (NEG-TRACE) Urine Glucose (UA) >=1000 mg/dL (NEG) Urine Ketones (Stick) Negative mg/dL (NEG) Urine Blood Negative (NEG) Urine Nitrite Negative (NEG) Urine Bilirubin Negative (NEG) Urine Urobilinogen Dipstick 0.2 mg/dL (0.2 mg/dL) Urine Leukocyte Esterase Negative (NEG) Urine RBC Occ /HPF (0-2) Urine WBC Rare /HPF (0-4) Urine Squamous Epithelial Cells Few /LPF Urine Bacteria 0 /HPF (0-FEW) Urine Mucus Slight /LPF Test 10/24/17 04:15 10/24/17 07:41 10/24/17 10:36 10/24/17 11:35 White Blood Count 6.3 x10^3/uL (4.0-11.0) Red Blood Count 5.40 x10^6/uL (4.30-5.70) Hemoglobin 14.7 g/dL (13.0-17.5) Hematocrit 44.1 % (39.0-53.0) Mean Corpuscular Volume 82 fL (79-100) Mean Corpuscular Hemoglobin 27 pg (25-35) Mean Corpuscular Hemoglobin Concent 33 g/dL (31-37) Red Cell Distribution Width 15.5 % (11.5-14.5) Platelet Count 218 x10^3/uL (140-400) Neutrophils (%) (Auto) 43 % (31-73) Lymphocytes (%) (Auto) 45 % (24-48) Monocytes (%) (Auto) 9 % (0-9) Eosinophils (%) (Auto) 3 % (0-3) Basophils (%) (Auto) 1 % (0-3) Neutrophils # (Auto) 2.7 x10^3uL (1.8-7.7) Lymphocytes # (Auto) 2.8 x10^3/uL (1.0-4.8) Monocytes # (Auto) 0.5 x10^3/uL (0.0-1.1) Eosinophils # (Auto) 0.2 x10^3/uL (0.0-0.7) Basophils # (Auto) 0.0 x10^3/uL (0.0-0.2) Heparin Anti-Xa Act, Unfractionated 0.36 IU/mL (0.30-0.70) 0.36 IU/mL (0.30-0.70) Sodium Level 134 mmol/L (136-145) Potassium Level 3.3 mmol/L (3.5-5.1) Chloride Level 98 mmol/L (98-107) Carbon Dioxide Level 26 mmol/L (21-32) Anion Gap 10 (6-14) Blood Urea Nitrogen 10 mg/dL (8-26) Creatinine 0.8 mg/dL (0.7-1.3) Estimated GFR (Cockcroft-Gault) 100.4 BUN/Creatinine Ratio 13 (6-20) Glucose Level 335 mg/dL (70-99) Calcium Level 8.7 mg/dL (8.5-10.1) Magnesium Level 1.8 mg/dL (1.8-2.4) Total Bilirubin 0.4 mg/dL (0.2-1.0) Aspartate Amino Transf (AST/SGOT) 20 U/L (15-37) Alanine Aminotransferase (ALT/SGPT) 46 U/L (16-63) Alkaline Phosphatase 97 U/L (46-116) Total Protein 7.4 g/dL (6.4-8.2) Albumin 3.4 g/dL (3.4-5.0) Albumin/Globulin Ratio 0.9 (1.0-1.7) Glucose (Fingerstick) 328 mg/dL (70-99) 304 mg/dL (70-99) Medications Active Scripts Medications Dose Route/Sig Max Daily Dose Days Date Category Aspirin 81 Mg Tab.chew 1 Tab PO DAILY 10/24/17 Reported Vitamin D3 (Cholecalciferol (Vitamin D3)) 5,000 Unit Tablet 1 Tab PO DAILY 10/24/17 Reported Losartan-Hctz 100-12.5 Mg Tab (Losartan/Hydrochlorothiazide) 1 Each Tablet 1 Tab PO DAILY 10/24/17 Reported Ibuprofen 600 Mg Tablet 600 Mg PO BID 10/24/17 Reported Lasix (Furosemide) 40 Mg Tablet 1 Tab PO DAILY 10/24/17 Reported Simvastatin 40 Mg Tablet 1 Tab PO QHS 10/24/17 Reported Zolpidem Tartrate 10 Mg Tablet 1 Tab PO QHS 10/24/17 Reported Diltiazem 24HR Cd (Diltiazem Hcl) 180 Mg Cap.er.24h 180 Mg PO DAILY 10/23/17 Reported Lantus Solostar (Insulin Glargine,Hum.rec.anlog) 100 Unit/1 Ml Insuln.pen 45 Unit SQ QHS 10/23/17 Reported Trulicity (Dulaglutide) 1.5 Mg/0.5 Ml Pen.injctr 1.5 Mg SQ 10/23/17 Reported Ranitidine Hcl 150 Mg Capsule 150 Mg PO BID 10/23/17 Reported Cyclobenzaprine Hcl 10 Mg Tablet 1 Tab PO DAILY 10/23/17 Reported Tamsulosin Hcl 0.4 Mg Cap.er.24h 0.4 Mg PO DAILY 10/23/17 Reported Potassium Chloride 20 Meq Tablet.er 20 Meq PO TIDAC 10/23/17 Reported Clonidine Hcl 0.3 Mg Tablet 0.3 Mg PO TID 10/23/17 Reported Omeprazole 40 Mg Capsule.dr 40 Mg PO DAILY 10/23/17 Reported Impression . PE/DVT AGREE WITH CURRENT RX HOME ON [facility] FOLLOW UP IN OFFICE IN 6-8 WEEKS NAHUM SAMUELS MD Oct 24, 2017 13:32
[2017-10-24] MEDS: LABETALOL 20 MG/4 ML DISP.SYRIN. IVP PRN (15:31)
--- NOTE | 2017-10-24 16:15 | CARD ---
MR#: [id number] Date of Study: 10/24/2017 Ordering Physician: KELSEY VAZQUEZ, Referring Physician: EMILIANO WARD, Tech: Anne Rodriguez APPROVED REPORT EXAM: Two-dimensional and M-mode echocardiogram with Doppler and color Doppler. Other Information Quality : AverageHR: 56bpm INDICATION Pulmonary Embolism RISK FACTORS Hypertension 2D DIMENSIONS RVDd3.0 (2.9-3.5cm)Left Atrium(2D)4.2 (1.6-4.0cm) IVSd1.3 (0.7-1.1cm)Aortic Root(2D)3.4 (2.0-3.7cm) LVDd5.8 (3.9-5.9cm)LVOT Diameter2.2 (1.8-2.4cm) PWd1.3 (0.7-1.1cm)FS (%) 18.5 % SV63.7 ml Aortic Valve AoV Peak Feliz.151.7cm/sAoV VTI30.1cm AO Peak GR.9.2mmHgLVOT Peak Feliz.90.7cm/s AO Mean GR.6mmHgAVA (VMAX)2.35cm2 Mitral Valve MV E Agedmfvt82.6cm/sMV DECEL [id number] MV A Qdjikrei49.6cm/sE/A Ratio0.8 Tricuspid Valve TR P. Nkybkndf180xi/sTR Peak Gr.20mmHg Pulmonary Vein PVa [id number] LEFT VENTRICLE The left ventricle is normal size. There is borderline concentric left ventricular hypertrophy. The l eft ventricular systolic function is normal. The ejection fraction is estimated at 55%. There is norm al LV segmental wall motion. Transmitral Doppler flow pattern is Grade I-abnormal relaxation pattern. RIGHT VENTRICLE The right ventricle is normal size. There is normal right ventricular wall thickness. The right ventr icular systolic function is normal. ATRIA The left atrium is mildly dilated. The right atrium size is normal. The interatrial septum is intact with no evidence for an atrial septal defect or patent foramen ovale as noted on 2-D or Doppler imagi ng. AORTIC VALVE The aortic valve is normal in structure and function. Doppler and Color Flow revealed no significant aortic regurgitation. There is no significant aortic valvular stenosis. MITRAL VALVE The mitral valve is normal in structure and function. Doppler and Color Flow revealed trace mitral re gurgitation. TRICUSPID VALVE The tricuspid valve is normal in structure and function. Doppler and Color Flow revealed trace tricus pid regurgitation. There is no tricuspid valve stenosis. PULMONIC VALVE The pulmonary valve is normal in structure and function. Doppler and Color Flow revealed no pulmonic valvular regurgitation. GREAT VESSELS The aortic root is normal in size. The IVC was not visualized. PERICARDIAL EFFUSION There is no evidence of significant pericardial effusion. Critical Notification Critical Value: No <Conclusion> The left ventricular systolic function is normal. The ejection fraction is estimated at 55%. There is normal LV segmental wall motion. Transmitral Doppler flow pattern is Grade I-abnormal relaxation pattern. Trace mitral regurgitation. Trace tricuspid regurgitation. There is no evidence of significant pericardial effusion. Signed by : Randy Schultz, Electronically Approved : 10/24/2017 16:14:49
[2017-10-24 19:25] VITALS: BP 164/92
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
[2017-10-24] MEDS: ZOLPIDEM 5 MG TABLET. PO SCH (20:36)
[2017-10-24] MEDS: SIMVASTATIN 40 MG TABLET. PO SCH (20:36)
[2017-10-24] MEDS: CYCLOBENZAPRINE 10 MG TABLET. PO SCH (20:37)
[2017-10-24] MEDS: FAMOTIDINE 20 MG TABLET. PO SCH (20:37)
[2017-10-24] MEDS ORDERED: NON FORMULARY ITEM (Ranitidine Hcl 150 MG) PO SCH (21:00)
[2017-10-24] MEDS ORDERED: INSULIN GLARGINE 300 UNITS/3 ML INSULN.PEN. SQ SCH (21:00)
[2017-10-24 23:25] VITALS: BP 171/99
[2017-10-25 03:23] VITALS: BP 158/96
[2017-10-25 04:27] LABS: BASO % 1 % (0-3); EOS # 0.1 x10^3/uL (0.0-0.7); EOS % 3 % (0-3); HEMATOCRIT 43.7 % (39.0-53.0); HEMOGLOBIN 14.5 g/dL (13.0-17.5); LYMPH # 2.1 x10^3/uL (1.0-4.8); LYMPH % 37 % (24-48); MEAN CORPUSCULAR HEMOGLOBIN 27 pg (25-35); MEAN CORPUSCULAR HGB CONC 33 g/dL (31-37); MEAN CORPUSCULAR VOLUME 82 fL (79-100); MONO # 0.5 x10^3/uL (0.0-1.1); MONO % 9 % (0-9); NEUT # 2.9 x10^3uL (1.8-7.7); NEUT % 51 % (31-73); PLATELET COUNT 210 x10^3/uL (140-400); RED BLOOD COUNT 5.33 x10^6/uL (4.30-5.70); WHITE BLOOD COUNT 5.7 x10^3/uL (4.0-11.0)
[2017-10-25 04:40] LABS: CALCIUM 8.7 mg/dL (8.5-10.1); CREATININE 0.9 mg/dL (0.7-1.3); GFR 87.6; POTASSIUM 3.4 mmol/L (3.5-5.1)
[2017-10-25 07:30] VITALS: BP 170/93
[2017-10-25] MEDS ORDERED: INSULIN LISPRO 300 UNITS/3 ML INSULN.PEN. SQ SCH (07:30)
--- NOTE | 2017-10-25 08:56 | PDOC ---
CARDIO Progress Notes Date and Time Date of Service 10/25/2017 Time of Evaluation 0856 Subjective Subjective: No Palpitations, No Dizziness, Other (intermittent dyspnea; occasional chest pain ) Vitals Vitals Vital Signs Date Time Temp Pulse Resp B/P (MAP) Pulse Ox O2 Delivery O2 Flow Rate FiO2 10/25/17 07:30 98.5 67 20 170/93 (118) 99 Room Air 98.5 Weight Weight [ ] Input and Output Intake and Output Intake and Output 10/25/17 07:00 Intake Total 3820 ml Output Total 3150 ml Balance 670 ml Intake Oral 2520 ml IV Total 1300 ml Output Urine Total 3150 ml Laboratory Labs Laboratory Tests Test 10/24/17 10:36 10/24/17 11:35 10/24/17 16:27 10/24/17 20:23 Heparin Anti-Xa Act, Unfractionated 0.36 IU/mL (0.30-0.70) Glucose (Fingerstick) 304 mg/dL (70-99) 363 mg/dL (70-99) 437 mg/dL (70-99) Test 10/25/17 03:45 10/25/17 07:36 White Blood Count 5.7 x10^3/uL (4.0-11.0) Red Blood Count 5.33 x10^6/uL (4.30-5.70) Hemoglobin 14.5 g/dL (13.0-17.5) Hematocrit 43.7 % (39.0-53.0) Mean Corpuscular Volume 82 fL (79-100) Mean Corpuscular Hemoglobin 27 pg (25-35) Mean Corpuscular Hemoglobin Concent 33 g/dL (31-37) Red Cell Distribution Width 16.0 % (11.5-14.5) Platelet Count 210 x10^3/uL (140-400) Neutrophils (%) (Auto) 51 % (31-73) Lymphocytes (%) (Auto) 37 % (24-48) Monocytes (%) (Auto) 9 % (0-9) Eosinophils (%) (Auto) 3 % (0-3) Basophils (%) (Auto) 1 % (0-3) Neutrophils # (Auto) 2.9 x10^3uL (1.8-7.7) Lymphocytes # (Auto) 2.1 x10^3/uL (1.0-4.8) Monocytes # (Auto) 0.5 x10^3/uL (0.0-1.1) Eosinophils # (Auto) 0.1 x10^3/uL (0.0-0.7) Basophils # (Auto) 0.0 x10^3/uL (0.0-0.2) Heparin Anti-Xa Act, Unfractionated 0.66 IU/mL (0.30-0.70) Sodium Level 136 mmol/L (136-145) Potassium Level 3.4 mmol/L (3.5-5.1) Chloride Level 99 mmol/L (98-107) Carbon Dioxide Level 29 mmol/L (21-32) Anion Gap 8 (6-14) Blood Urea Nitrogen 12 mg/dL (8-26) Creatinine 0.9 mg/dL (0.7-1.3) Estimated GFR (Cockcroft-Gault) 87.6 Glucose Level 318 mg/dL (70-99) Calcium Level 8.7 mg/dL (8.5-10.1) Glucose (Fingerstick) 236 mg/dL (70-99) Physical Exam Chest: Symmetric LUNGS: Clear to Auscultation Heart: S1S2, RRR Abdomen: Soft N/T Neurology: alert, oriented, follow commands Assessment Assessment 1. bilateral pulmonary embolus with RLE DVT --continue heparin gtt --converting to OAC per PULM 2. chest pain --atypical and likely related to PE --EKG without acute changes --schedule outpatient MPI given risk factors of DM, II and HTN 3. DM, II --per primary service 4. HTN urgency with hypertensive heart disease --EF preserved with Grade 1 diastolic dysfunction --oral meds resumed --add prn labetolol --consider stopping diltiazem and using amlodipine or felodipine as patient does not provide a history of dysrhythmias --add hydralazine 25 mg BID; needs more aggressive treatment of HTN 5. BEBE, untreated --suspect this is impacting BP control as well --CPAP recommended May discharge when agreeable with other services Cardiology office will contact with day/time for outpatient MPI and follow up appt. CHARLIE MEJIA APRN Oct 25, 2017 08:56
[2017-10-25] MEDS: CHOLECALCIFEROL (VITAMIN D3) 5,000 UNIT CAPSULE PO SCH (08:57)
[2017-10-25] MEDS: FAMOTIDINE 20 MG TABLET. PO SCH ×2 (08:57→20:36)
[2017-10-25] MEDS: POTASSIUM CHLORIDE 20 MEQ TABLET.ER. PO SCH ×3 (08:57→17:29)
[2017-10-25] MEDS: ASPIRIN CHEWABLE 81 MG TABLET. PO SCH (08:57)
[2017-10-25] MEDS: hydroCHLOROthiazide 12.5 MG CAPSULE PO SCH (08:58)
[2017-10-25] MEDS: PANTOPRAZOLE 40 MG TABLET.DR. PO SCH (08:58)
[2017-10-25] MEDS: cloNIDine HCL 0.3 MG TABLET PO SCH ×3 (08:58→20:36)
[2017-10-25] MEDS: CYCLOBENZAPRINE 10 MG TABLET. PO SCH ×2 (08:58→20:36)
[2017-10-25] MEDS: FUROSEMIDE 40 MG TABLET. PO SCH (08:59)
[2017-10-25] MEDS: TAMSULOSIN 0.4 MG CAP.ER.24H. PO SCH (08:59)
[2017-10-25] MEDS ORDERED: NON FORMULARY ITEM (Losartan/Hydrochlorothiazide (Losartan-Hctz 100-12.5 Mg Tab) 1 TAB) PO SCH (09:00)
[2017-10-25] MEDS: ANTI-COAG MONITOR BY PHARMACY. MC PRN (09:00)
[2017-10-25] MEDS: LOSARTAN POTASSIUM 50 MG TABLET. PO SCH (09:02)
[2017-10-25] MEDS: INSULIN LISPRO 300 UNITS/3 ML INSULN.PEN. SQ SCH ×5 (09:22→17:34)
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
[2017-10-25] MEDS: hydrALAZINE 25 MG TABLET PO SCH ×2 (11:02→20:36)
[2017-10-25] MEDS: LABETALOL 20 MG/4 ML DISP.SYRIN. IVP PRN (11:03)
[2017-10-25 11:05] VITALS: BP 187/102
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
[2017-10-25] MEDS: HEPARIN 25,000UTS/500ML PREMIX 500 ML IV PRN (12:41)
[2017-10-25 15:05] VITALS: BP 142/79
[2017-10-25] MEDS ORDERED: CALCIUM CARBONATE 500 MG TAB.CHEW PO PRN (17:45)
[2017-10-25 19:45] VITALS: BP 155/92
[2017-10-25] MEDS ORDERED: HYDROcodone/APAP 5/325MG 1 TAB TABLET PO PRN (20:30)
[2017-10-25] MEDS: SIMVASTATIN 40 MG TABLET. PO SCH (20:36)
[2017-10-25] MEDS: ZOLPIDEM 5 MG TABLET. PO SCH (20:37)
[2017-10-25] MEDS ORDERED: INSULIN GLARGINE 300 UNITS/3 ML INSULN.PEN. SQ SCH (21:00)
[2017-10-25 22:35] VITALS: BP 143/78
[2017-10-26] MEDS: HEPARIN 25,000UTS/500ML PREMIX 500 ML IV PRN (02:00)
[2017-10-26 03:10] VITALS: BP 152/113
[2017-10-26 04:22] LABS: BASO % 1 % (0-3); EOS # 0.2 x10^3/uL (0.0-0.7); EOS % 2 % (0-3); HEMATOCRIT 42.8 % (39.0-53.0); HEMOGLOBIN 14.1 g/dL (13.0-17.5); LYMPH % 31 % (24-48); MEAN CORPUSCULAR HEMOGLOBIN 27 pg (25-35); MEAN CORPUSCULAR HGB CONC 33 g/dL (31-37); MEAN CORPUSCULAR VOLUME 81 fL (79-100); MONO # 0.6 x10^3/uL (0.0-1.1); MONO % 10 % (0-9); NEUT # 3.6 x10^3uL (1.8-7.7); NEUT % 57 % (31-73); PLATELET COUNT 208 x10^3/uL (140-400); RED BLOOD COUNT 5.26 x10^6/uL (4.30-5.70); RED CELL DISTRIBUTION WIDTH 15.6 % (11.5-14.5); WHITE BLOOD COUNT 6.4 x10^3/uL (4.0-11.0)
[2017-10-26 04:44] LABS: CHOLESTEROL/HDL RATIO 4.3
[2017-10-26] MEDS ORDERED: APIXABAN 5 MG TABLET. PO ONE (05:45)
[2017-10-26 07:40] VITALS: BP 167/94
[2017-10-26] MEDS: CYCLOBENZAPRINE 10 MG TABLET. PO SCH (08:16)
[2017-10-26] MEDS: TAMSULOSIN 0.4 MG CAP.ER.24H. PO SCH (08:16)
[2017-10-26] MEDS: CHOLECALCIFEROL (VITAMIN D3) 5,000 UNIT CAPSULE PO SCH (08:16)
[2017-10-26] MEDS: FAMOTIDINE 20 MG TABLET. PO SCH (08:17)
[2017-10-26] MEDS: ASPIRIN CHEWABLE 81 MG TABLET. PO SCH (08:17)
[2017-10-26] MEDS: PANTOPRAZOLE 40 MG TABLET.DR. PO SCH (08:18)
[2017-10-26] MEDS: POTASSIUM CHLORIDE 20 MEQ TABLET.ER. PO SCH (08:18)
[2017-10-26] MEDS: FUROSEMIDE 40 MG TABLET. PO SCH (08:18)
[2017-10-26] MEDS: hydroCHLOROthiazide 12.5 MG CAPSULE PO SCH (08:18)
[2017-10-26] MEDS: hydrALAZINE 25 MG TABLET PO SCH (08:19)
[2017-10-26] MEDS: cloNIDine HCL 0.3 MG TABLET PO SCH (08:20)
[2017-10-26 08:21] VITALS: BP 167/94
[2017-10-26] MEDS: LOSARTAN POTASSIUM 50 MG TABLET. PO SCH (08:21)
[2017-10-26] MEDS: INSULIN LISPRO 300 UNITS/3 ML INSULN.PEN. SQ SCH ×2 (08:25→08:27)
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
[2017-10-26] MEDS ORDERED: APIX5TAB PO (10:05)
[2017-10-26] MEDS ORDERED: INSU100I11 SQ (10:05)
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
[2017-10-26 14:33] LABS: HEMOGLOBIN A1C 12.1 % (4.8-5.6)
[2017-10-26] MEDS ORDERED: APIXABAN 5 MG TABLET. PO SCH (21:00)
--- NOTE | 2017-10-28 09:52 | PDOC ---
Provider Note Provider Note Discharge summary dictated. #[id number] EMILIANO WARD MD Oct 28, 2017 09:52
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
== END 2017-10-26 12:00 | disposition home or self-care (01) | DRG 299 ==
LOC: ER 16:31 → 2 SOUTH 19:15
PROVIDERS: ADMIT Internal Medicine; ATTEND Internal Medicine
DX: I82.411 Acute embolism and thrombosis of right femoral vein (principal); I26.99 Other pulmonary embolism without acute cor pulmonale; I16.0 Hypertensive urgency; E11.9 Type 2 diabetes mellitus without complications; E78.5 Hyperlipidemia, unspecified; F17.210 Nicotine dependence, cigarettes, uncomplicated; G47.33 Obstructive sleep apnea (adult) (pediatric); I11.9 Hypertensive heart disease without heart failure; Z79.4 Long term (current) use of insulin; Z79.899 Other long term (current) drug therapy; Z82.49 Family history of ischemic heart disease and other diseases of the circulatory system; Z83.3 Family history of diabetes mellitus; Z86.711 Personal history of pulmonary embolism; Z87.820 Personal history of traumatic brain injury
CPT/HCPCS: 36415; 70450; 71045; 71275; 80048; 80053; 80061; 81001; 82962; 83036; 83735; 84443; 84484; 85025; 85520; 85610; 93005; 93306; 93970; 96361; 96374; J1815; J2270; J3490; J7030; 99285-25

== ENCOUNTER 2018-09-05 09:01 | Emergency (ER) | payer MEDICARE, OTHER ==
[~2018-09-05] VITALS: Ht 182.9 cm; Wt 117.9 kg
[~2018-09-05 09:01] MED LIST: APIX5TAB PO; ASPI-630 PO; CHOL500016 PO; CLON0.3T PO; CYCL10TA2 PO; DILT180C29 PO; DULA1.5P SQ; FURO-68 PO; IBUP-1007 PO; INSU100I11 SQ; INSU100I13 SQ; LOSA1TAB25 PO; LOSA25TA54 PO; OMEP40CA5 PO; POTA20TA82 PO; RANI150C PO; SIMV40TA3 PO; TAMS0.4C2 PO; ZOLP10TA4 PO
--- NOTE | 2018-09-05 09:38 | PHYS DOC ---
Past Medical History Past Medical History: Diabetes-Type II, Hypertension Additional Past Medical Histor: CONCUSSION Additional Past Surgical Histo: BACK SX AND HEAD SX Alcohol Use: Occasionally Drug Use: None Adult General Chief Complaint Chief Complaint: MULTIPLE COMPLAINTS HPI HPI Patient is a 58 year old -Citizen Of [place] male with history of diabetes, chronic back pain who presents with multiple medical complaints. Patient has hi story of diabetic neuropathy and poorly controlled diabetes. Blood sugar this morning is greater than 200. Patient has referral to an [place]ridge farmer in 2 weeks the received [facility]. Patient's principal concern this morning however is his back pain. Patient is back pain is diffuse lower and worse outpatient movement. This appears to be a chronic process. He is previo usly been treated with epidural steroid injections with significant relief was hoping he could have steroid injection this morning range through the emergency department. He denies urinary frequency urgency burning, hematuria. Does not have history of kidney stones. Denies fever chills, nausea vomiting or sweats. No other acute symptoms or complaints.[] Review of Systems Review of Systems Review symptoms as per history of present illness. All other review symptoms are negative. All other systems were reviewed and found to be within normal limits, except as documented in this note. Allergies Allergies Allergies Coded Allergies Type Severity Reaction Last Updated Verified No Known Drug Allergies 10/23/17 No Physical Exam Physical Exam Constitutional: Well developed, well nourished, no acute distress, non-toxic appearance. [] HENT: Normocephalic, atraumatic, bilateral external ears normal, oropharynx moist, no oral exudates, nose normal. [] Eyes: PERRLA, EOMI, conjunctiva normal, no discharge. [] Neck: Normal range of motion, no tenderness, supple, no stridor. [] Cardiovascular:Heart rate regular rhythm, no murmur [] Lungs & Thorax: Bilateral breath sounds clear to auscultation [] Abdomen: Bowel sounds normal, soft, no tenderness, no masses, no pulsatile masses. [] Skin: Warm, dry, no erythema, no rash. [] Back: She is low back pain, no CVA tenderness. [] Extremities: No tenderness, no cyanosis. [] Neurologic: Alert and oriented X 3, normal motor function, normal sensory function, no focal deficits noted. Walks with steady gait [] Psychologic: Affect normal, judgement normal, mood normal. [] Current Patient Data Vital Signs Vital Signs Date Time Temp Pulse Resp B/P (MAP) Pulse Ox O2 Delivery O2 Flow Rate FiO2 09/05/18 09:11 98.3 74 18 186/88 (120) 99 Room Air 98.3 Lab Values Laboratory Tests Test 09/05/18 09:41 Urine Collection Type Unknown Urine Color Yellow Urine Clarity Clear Urine pH 7.0 Urine Specific [place] 1.025 Urine Protein Negative mg/dL (NEG-TRACE) Urine Glucose (UA) 100 mg/dL (NEG) Urine Ketones (Stick) Negative mg/dL (NEG) Urine Blood Negative (NEG) Urine Nitrite Negative (NEG) Urine Bilirubin Negative (NEG) Urine Urobilinogen Dipstick 1.0 mg/dL (0.2 mg/dL) Urine Leukocyte Esterase Negative (NEG) Urine RBC 3-5 /HPF (0-2) Urine WBC Occ /HPF (0-4) Urine Squamous Epithelial Cells Occ /LPF Urine Bacteria 0 /HPF (0-FEW) EKG EKG [EK] Radiology/Procedures Radiology/Procedures [] Course & Med Decision Making Course & Med Decision Making Pertinent Labs and Imaging studies reviewed. (See chart for details) [Blood sugar 209, no hematuria or signs of urinary tract infection. Will prescribe with instructions follow-up with] Dragon Disclaimer Dragon Disclaimer This electronic medical record was generated, in whole or in part, using a voice recognition dictation system. Departure Departure Impression: Primary Impression: Lower back pain Disposition: HOME, SELF-CARE Condition: GOOD Referrals: EMILIANO WARD MD (PCP) Patient Instructions: Back Pain, Adult Additional Instructions: You were evaluated in the emergency department for back pain. A urine sample was performed and was nondiagnostic. Please take Flexeril for back pain as needed and follow-up with your PCP. Scripts Cyclobenzaprine Hcl (CYCLOBENZAPRINE HCL) 10 Mg Tablet 10 MG PO TID, #15 TAB Prov: KAY JOHNSTON DO 09/05/18 KAY JOHNSTON DO Sep 05, 2018 09:38
[2018-09-05 09:49] LABS: BILIRUBIN,URINE NEGATIVE (NEG); CLARITY,URINE CLEAR; COLOR,URINE YELLOW; NITRITE,URINE NEGATIVE (NEG); PROTEIN,URINE NEGATIVE (NEG-TRACE)
[2018-09-05 10:14] VITALS: BP 170/88
[2018-09-05 10:23] LABS: BACTERIA,URINE 0 /HPF (0-FEW); SQUAMOUS EPITHELIAL CELL,UR OCC /LPF; WBC,URINE OCC /HPF (0-4)
[2018-09-05] MEDS ORDERED: CYCL10TA2 PO (10:29)
== END 2018-09-05 10:35 | disposition home or self-care (01) ==
LOC: ER 09:01
DX: G89.29 Other chronic pain (principal); M54.5 Low back pain; E11.40 Type 2 diabetes mellitus with diabetic neuropathy, unspecified; I10 Essential (primary) hypertension
CPT/HCPCS: 81001; 82962; 99284

== ENCOUNTER → 2019-12-04 | Outpatient (CLI) | payer MEDICARE, OTHER ==
[~2019-12-04] MED LIST changes: +OMEP40CA45 PO; -OMEP40CA5 PO; +POTA20TA4 PO; -POTA20TA82 PO; +SIMV40TA18 PO; -SIMV40TA3 PO
--- NOTE | 2019-12-04 14:51 | RAD ---
SHOULDER 2+V LEFT DATE: 12/04/2019 12:00 AM INDICATION: Reason: LEFT SHOULDER PAIN WITH IMPINGEMENT. LEFT ARM NUMBNESS. / Spl. Instructions: / History: COMPARISON: None. FINDINGS: Bones: There is no evidence of acute fracture or dislocation. Joints: Moderate degenerative changes of the acromioclavicular joint. Mild degenerative changes at the glenohumeral joint. The acromiohumeral distance is not narrowed. Miscellaneous: No abnormal soft tissue calcifications in the shoulder. IMPRESSION: No acute osseous abnormality. Moderate AC joint degenerative changes. Mild glenohumeral joint degenerative changes. Electronically signed by: Juan Jose Higgins MD (12/04/2019 2:48 PM) [id number]
--- NOTE | 2019-12-04 14:51 | RAD ---
CERVICAL SPINE 2-3V DATE: 12/04/2019 12:00 AM INDICATION: Reason: LEFT SHOULDER PAIN WITH IMPINGEMENT. LEFT ARM NUMBNESS. / Spl. Instructions: / History: COMPARISON: None. FINDINGS: The cervical spine is visualized to the level of C6-7 on the lateral views. Bones/Alignment: No evidence of acute fracture. There is no listhesis. Joints: Moderate degenerative disc disease. The facets are normally aligned. Soft tissue: No significant prevertebral soft tissue swelling. IMPRESSION: Moderate cervical spondylosis Electronically signed by: Juan Jose Higgins MD (12/04/2019 2:48 PM) [id number]
== END ==
LOC: RAD 12:41
PROVIDERS: ATTEND Surgery
DX: M47.812 Spondylosis without myelopathy or radiculopathy, cervical region (principal); M19.012 Primary osteoarthritis, left shoulder
CPT/HCPCS: 72040; 73030